=== PATIENT | female | born 1965 | race Caucasian/White ===

== ENCOUNTER 2017-05-23 19:14 | Emergency (ER) | payer BC ==
[2017-05-23] MEDS ORDERED: NS 0.9% 1000 ML* 1,000 ML IV ONE (19:34)
[2017-05-23] MEDS ORDERED: Midazolam* 1 MG/ML 5 ML VIAL (5 MG) SLOW PUSH ONE (19:35)
[2017-05-23] MEDS ORDERED: fentaNYL* 50 MCG/ML 2 ML VIAL (100 MCG VIAL) IV SLOW PU ONE (19:35)
[2017-05-23] MEDS ORDERED: Flumazenil* 0.1 MG/ML 5 ML MDV ONE (19:41)
[2017-05-23] MEDS ORDERED: Naloxone* 0.4 MG/ML 10 ML VIAL ONE (19:41)
[2017-05-23] MEDS ORDERED: Morphine INJ* 2 MG/ML 1 ML CARPUJECT IV ONE (20:11)
--- NOTE | 2017-05-23 20:29 | RAD ---
INDICATION: Ankle pain after a fall COMPARISON: None. TECHNIQUE: 2 views of the right ankle were obtained. FINDINGS: On the lateral view radiograph there is anterior dislocation of the tibia relative to the articulating talus. There is fracture of what is assumed to be the posterior malleolus. On the AP view there appears to be nondisplaced fracture of the distal fibula. The tarsal bones appear to be otherwise intact. IMPRESSION: ANTERIORLY DISPLACED RIGHT ANKLE FRACTURE DESCRIBED ABOVE.
--- NOTE | 2017-05-23 21:31 | RAD ---
INDICATION: Post reduction COMPARISON: Same day radiograph of the right ankle that shows a dislocated fracture TECHNIQUE: 3 views of the right ankle were obtained. FINDINGS: There has been interval reduction of the previously dislocated right ankle. Minimally displaced fractures are seen in the distal fibula and involving the tibial malleolus. Posterior malleolus appears to be intact. Remaining visualized bones are intact. There is asymmetric widening of the medial ankle mortise. IMPRESSION: INTERVAL REDUCTION OF PREVIOUSLY DISLOCATED RIGHT ANKLE WITH NONDISPLACED FRACTURES AT THE RIGHT DISTAL FIBULA AND TIBIA MALLEOLUS. THE ANKLE MORTISE IS ASYMMETRIC.
--- NOTE | 2017-05-23 21:41 | ED ---
Maida Macedo Thomas, scribed for Aleena Patel MD on 05/23/17 at 2000 . Lower Extremity - HPI Summary HPI Summary: The patient is a 51 year old female with obvious deformity and right ankle pain after slipping on the ice earlier today. She is in moderate pain. She last ate at 16:00. - History of Current Complaint Chief Complaint: EDExtremityLower Stated Complaint: RT LEG INJURY Time Seen by Provider: 05/23/17 19:32 Hx Obtained From: Patient Mechanism Of Injury: Fall From A Standing Position Onset of Pain: Immediate Onset/Duration: Still Present Severity Initially: Severe Severity Currently: Severe Pain Intensity: 8 Pain Scale Used: 0-10 Numeric Timing: Constant Location: Is Discrete @ - right ankle Associated Signs And Symptoms: Negative: Fever Aggravating Factor(s): Ambulation, Movement Alleviating Factor(s): Nothing Able to Bear Weight: No - Allergies/Home Medications Allergies/Adverse Reactions: Allergies Allergy/AdvReac Type Severity Reaction Status Date / Time aspirin Allergy Unknown Verified 05/23/17 19:51 Reaction Details PMH/Surg Hx/FS Hx/Imm Hx Opthamlomology History: Denies: Hx Legally Blind EENT History: Denies: Hx Deafness Infectious Disease History: No Infectious Disease History: Denies: Traveled Outside the [place] in Last 30 Days - Family History Known Family History: Positive: Other - Patient denies relevant FHx - Social History Alcohol Use: Occasionally Hx Substance Use: No Substance Use Type: Reports: None Hx Tobacco Use: No Smoking Status (MU): Never Smoked Tobacco Review of Systems Negative: Fever Positive: Other - Right ankle deformity and pain All Other Systems Reviewed And Are Negative: Yes Physical Exam - Summary Physical Exam Summary: VITAL SIGNS: Reviewed. GENERAL:~Patient is a well-developed and nourished FEMALE who is lying comfortable in the stretcher. Patient is not in any acute respiratory distress. HEAD AND FACE: No signs of trauma. No ecchymosis, hematomas or skull depressions. No sinus tenderness. EYES: PERRLA, EOMI x 2, No injected conjunctiva, no nystagmus. EARS: Hearing grossly intact. Ear canals and tympanic membranes are within normal limits. MOUTH: Oropharynx within normal limits. NECK: Supple, trachea is midline, no adenopathy, no JVD, no carotid bruit, no c- spine tenderness, neck with full ROM. CHEST: Symmetric, no tenderness at palpation LUNGS: Clear to auscultation bilaterally. No wheezing or crackles. CVS: Regular rate and rhythm, S1 and S2 present, no murmurs or gallops appreciated. ABDOMEN: Soft, non-tender. No signs of distention. No rebound no guarding, and no masses palpated. Bowel sounds are normal. EXTREMITIES: There is a deformity to the right ankle. Neurovascular is intact. Dorsalis Pedis is 2+. NEURO: Alert and oriented x 3. No acute neurological deficits. Speech is normal and follows commands. SKIN: Dry and warm Triage Information Reviewed: Yes Vital Signs On Initial Exam: Initial Vitals Temp Pulse Resp BP Pulse Ox 101.0 F 74 22 139/72 100 05/23/17 19:20 05/23/17 19:20 05/23/17 19:20 05/23/17 19:20 05/23/17 19:20 Vital Signs Reviewed: Yes Procedures - Procedure Summary Procedure Summary: MODERATE SEDATION PROCEDURE NOTE: The patient was given moderate sedation. Consent was obtained. The patient was given Versed and Fentanyl. The patient was sedated enough for the procedure below. There were no complications. No reversal agent was used. The procedure took about 20 minutes. CLOSED REDUCTION OF RIGHT ANKLE FRACTURE DISLOCATION PROCEDURE NOTE: This was done under moderate sedation. I used traction counter-traction. The right ankle was reduced. Posterior/U-Splint orthoglass splint was applied to the right ankle. Neurovascular exam was intact pre- and post-reduction. Post- reduction XR shows alignment. Diagnostics - Vital Signs Vital Signs Temp Pulse Resp BP Pulse Ox 05/23/17 19:20 101.0 F 74 22 139/72 100 - Laboratory Lab Statement: Any lab studies that have been ordered have been reviewed, and results considered in the medical decision making process. - Radiology Ankle XR 19:34 Xray Interpretation: Positive (See Comments) - ANTERIORLY DISPLACED RIGHT ANKLE FRACTURE DESCRIBED ABOVE. Dr. Patel has reviewed this report. Radiology Interpretation Completed By: Radiologist Ankle XR 20:49 Xray Interpretation: Positive (See Comments) - INTERVAL REDUCTION OF PREVIOUSLY DISLOCATED RIGHT ANKLE WITH NONDISPLACED FRACTURES AT THE RIGHT DISTAL FIBULA AND TIBIA MALLEOLUS. THE ANKLE MORTISE IS ASYMMETRIC. Dr. Patel has reviewed this report. Radiology Interpretation Completed By: Radiologist Lower Extremity Course/Dx - Course Assessment/Plan: The patient is a 51 year old female presenting with right ankle deformity after she fell on ice earlier today. The patient has a right ankle fracture. The ankle was reduced. The patient will be discharged home to follow up with orthopedics. 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 I gave her a prescription for pain medication. - Diagnoses Provider Diagnoses: Ankle fracture, right Discharge - Discharge Plan Condition: Stable Disposition: HOME Prescriptions: oxyCODONE/Acetamin 5/325 MG* [Percocet 5/325 TAB*] 1 tab PO Q6H PRN #20 tab MDD 4 PRN Reason: Pain Patient Education Materials: Ankle Fracture (ED) Referrals: [facility] [Outside] - 3 Days Additional Instructions: Follow up with your [place] orthopedist in three days. I have given you a referral to the [facility] orth[facility]ist as well. Return to the emergency department for any new or worsening symptoms. The documentation as recorded by the Maida stallworth Thomas accurately reflects the service I personally performed and the decisions made by me, Aleena Patel MD.
[2017-05-23 22:03] VITALS: BP 115/51
== END 2017-05-23 22:07 | disposition home or self-care (01) ==
LOC: ED 19:14
DX: S82.891A Other fracture of right lower leg, initial encounter for closed fracture (principal); M25.571 Pain in right ankle and joints of right foot; W00.9XXA Unspecified fall due to ice and snow, initial encounter; Y92.9 Unspecified place or not applicable
CPT/HCPCS: 96374; 99285; J2250; J2270; J2310; J3010